=== PATIENT | male | born 1980 | race Caucasian/White ===

== ENCOUNTER 2022-06-07 20:05 | Emergency (ER) | payer SELFPAY ==
[~2022-06-07] VITALS: Ht 165.1 cm; Wt 72.6 kg
[2022-06-07 20:06] VITALS: BP 136/78
[2022-06-07] MEDS ORDERED: HALOPERIDOL IM 5 MG/ML VIAL IM ONE (20:10)
[2022-06-07] MEDS ORDERED: LORazepam 2 MG/ML VIAL IM ONE (20:10)
--- NOTE | 2022-06-07 20:24 | NUR ---
PT TO BED 02. ON ROOM SERVICE SERVER, SEIZURE PRECAUTIONS INITIATED.
--- NOTE | 2022-06-07 20:30 | NUR ---
42 YO M BIBA [facility] WITH S/S OF SEIZURE ACTIVITY. NO SZ ACTIVITY AT THIS TIME. SZ PRECAUTIONS ARE IN PLACE UNABLE TO OBTAIN HX, RX AND ALLERGIES
--- NOTE | 2022-06-07 22:00 | NUR ---
RESTING WITH EYES CLOSED. RESPIRATIONS REGULAR AND UNLABORED
--- NOTE | 2022-06-08 02:00 | NUR ---
RESTING WITH EYES CLOSED. PT IS DIFFICULT TO AWAKEN, RETURNS TO RESTING WITH EYES CLOSED QUICKLY
[2022-06-08 06:50] VITALS: BP 134/62
--- NOTE | 2022-06-08 06:50 | NUR ---
Patient discharged with v/s stable. Written and verbal after care instructions given and explained. Patient verbalized understanding. Wheel Chair Assisted with to car. All questions addressed prior to discharge. Advised to follow up with PMD.
== END 2022-06-08 06:50 | disposition home or self-care (01) ==
LOC: MED 20:05
DX: R56.9 Unspecified convulsions (principal); R45.1 Restlessness and agitation
CPT/HCPCS: 70450; 96372; 99285; J1630; J2060

== ENCOUNTER 2022-06-23 14:38 | Emergency (ER) | payer SELFPAY ==
[~2022-06-23] VITALS: Ht 165.1 cm; Wt 81.6 kg
[2022-06-23 14:55] VITALS: BP 130/96
--- NOTE | 2022-06-23 15:01 | NUR ---
[facility] [address]
[2022-06-23] MEDS ORDERED: THIAMINE 200 MG/2 ML VIAL IM ONE (15:20)
[2022-06-23] MEDS ORDERED: NACL 0.9% 1,000 ML IV ONE (15:20)
[2022-06-23] MEDS ORDERED: FOLIC ACID 5 MG, MULTIVITAMIN-12 10 ML in NACL 0.9% 1,000 ML IV ONE (15:20)
--- NOTE | 2022-06-23 15:20 | NUR ---
PT W/C ASSISTED TO BED 11.
--- NOTE | 2022-06-23 15:26 | NUR ---
PT CHANGED OUT OF SOILED CLOTHES, CHANGED INTO A GOWN
[2022-06-23 15:27] LABS: BASOPHILS # (AUTO) 0.1 K/uL (0.00-0.22); BASOPHILS % (AUTO) 0.5 % (0.0-2.0); EOSINOPHILS # (AUTO) 0.3 K/uL (0-0.4); EOSINOPHILS % (AUTO) 2.5 % (0.0-4.0); HEMATOCRIT 41.1 % (36-52); HEMOGLOBIN 13.4 g/dL (12.0-18.0); LYMPHOCYTES # (AUTO) 2.7 K/uL (2.0-11.5); LYMPHOCYTES % (AUTO) 24.3 % (20.5-51.1); MEAN CORPUSCULAR HEMOGLOBIN 28 pg (27-31); MEAN CORPUSCULAR HGB CONC 33 g/dL (33-37); MEAN CORPUSCULAR VOLUME 84.4 fL (80-94); MONOCYTES # (AUTO) 0.5 K/uL (0.8-1.0); NEUTROPHILS # (AUTO) 7.4 K/uL (1.8-7.7); NEUTROPHILS % (AUTO) 67.7 % (42.2-75.2); PLATELET COUNT (AUTO) 289 K/uL (140-450); RED BLOOD CELL COUNT(AUTO) 4.88 MIL/uL (4.20-6.10); RED CELL DISTRIBUTION WIDTH 15.1 % (11.6-13.7); WHITE BLOOD COUNT (AUTO) 10.9 K/uL (4.8-10.8)
[2022-06-23] MEDS ORDERED: FOLIC ACID 5 MG, MULTIVITAMIN-12 10 ML in NACL 0.9% 1,000 ML IV SCH (15:32)
--- NOTE | 2022-06-23 15:32 | NUR ---
PT TAKEN TO CT VIA [facility]
--- NOTE | 2022-06-23 15:55 | NUR ---
42 Y/O MALE BIBA [facility] C/O ETOH. PT NOTED TO BE SLURRING HIS SPEECH AND SMELLING OF ALCOHOL AND URINE. ALLERGY: UNOBTAINABLE PMH: DM
[2022-06-23 15:58] LABS: APPEARANCE,URINE CLEAR (CLEAR); BILIRUBIN,URINE NEGATIVE (NEGATIVE); BLOOD, URINE NEGATIVE (NEGATIVE); COLOR,URINE YELLOW (YELLOW); LEUKOCYTE ESTERASE ,URINE NEGATIVE (NEGATIVE); NITRITE, URINE NEGATIVE (NEGATIVE); UGLUCOSE 2+ (NEGATIVE)
[2022-06-23 16:02] LABS: ALBUMIN 3.6 g/dL (3.4-5.0); ANION GAP 21.8 (8-16); ASPARTATE AMINOTRANSFERASE 26 U/L (15-37); CARBON DIOXIDE 22.3 mmol/L (21-32); CHLORIDE 98 mmol/L (98-107); CREATININE 0.7 mg/dL (0.6-1.3); GFR ARICAN-AMERICAN 158 mL/min (>90); GLUCOSE 273 mg/dL (74-106); POTASSIUM 4.1 mmol/L (3.5-5.1); SODIUM SERUM 138 mmol/L (136-145); TOTAL BILIRUBIN 0.2 mg/dL (0.0-1.0); UREA NITROGEN, BLOOD 9 mg/dL (7-18)
[2022-06-23 16:14] LABS: BARBITURATE, URINE NEGATIVE ng/ml (NEG <=200); BENZODIAZEPINE, URINE NEGATIVE ng/mL (NEG <=200); CANNABINOID, URINE NEGATIVE ng/mL (NEG <=50); COCAINE, URINE NEGATIVE ng/mL (NEG <=300); OPIATE, URINE NEGATIVE ng/mL (NEG <=2000); PHENCYCLIDINE SCREEN,URINE NEGATIVE ng/mL (NEG <=25)
--- NOTE | 2022-06-23 19:15 | NUR ---
Pt report given to [facility] AND [facility]. Transfer of care at this time.
--- NOTE | 2022-06-23 19:45 | NUR ---
ATTEMPTED TO CALL HOME FROM [facility] WITH NO SUCCESS
--- NOTE | 2022-06-23 19:50 | NUR ---
ATTEMPTED TO CALL HOME FROM [facility] WITH NO SUCCESS
--- NOTE | 2022-06-23 23:00 | NUR ---
ATTEMPTED TO CALL HOME FROM [facility] WITH NO SUCCESS
--- NOTE | 2022-06-24 00:30 | NUR ---
ATTEMPTED TO CALL HOME FROM [facility] WITH NO SUCCESS
--- NOTE | 2022-06-24 10:00 | NUR ---
ATTEMPTED TO CALL [facility] WITHOUT ANY ANSWER. CALLED [facility] TO SPEAK TO PTS COMMUNITY DEVELOPMENT PLANNER, UNABLE TO REACH D/T HOLIDAY HOURS.
--- NOTE | 2022-06-24 10:30 | NUR ---
SPOKE TO COOK ROAST MADE AWARE OF SITUATION, ALSO SPOKE TO SUPERVISOR CLAIMS AND MADE AWARE
--- NOTE | 2022-06-24 12:10 | NUR ---
PT DC TO HALF-WAY VIA [facility]. PT STABLE ON DC. NAD.
[2022-06-24 12:11] VITALS: BP 144/79
--- NOTE | 2022-07-08 | NUR ---
LATE ENTRY* IVF DISCONTINUED AT 1900
== END 2022-06-24 12:10 | disposition home or self-care (01) ==
LOC: MED 14:38
DX: R41.82 Altered mental status, unspecified (principal); F10.129 Alcohol abuse with intoxication, unspecified; Z59.00 Homelessness unspecified; Y90.9 Presence of alcohol in blood, level not specified
CPT/HCPCS: 36415; 70450; 80053; 80305; 81003; 84484; 85025; 93005; 96365; 96372; 99285; A9153; G0482; J3411; J3490; J7030; 96361; 96374

== ENCOUNTER 2024-04-01 21:00 | Emergency (ER) | payer SELFPAY ==
[~2024-04-01] VITALS: Ht 165.1 cm; Wt 68.0 kg
[2024-04-01 21:02] VITALS: BP 124/81; PULSE 127; RESP 22; TEMP 98.2; O2SAT 100
[2024-04-01 21:45] LABS: BASOPHILS # (AUTO) 0.2 K/uL (0.00-0.22); BASOPHILS % (AUTO) 1.2 % (0.0-2.0); EOSINOPHILS # (AUTO) 0.6 K/uL (0-0.4); EOSINOPHILS % (AUTO) 3.8 % (0.0-4.0); HEMATOCRIT 42.8 % (36-52); HEMOGLOBIN 14.1 g/dL (12.0-18.0); LYMPHOCYTES # (AUTO) 4.2 K/uL (2.0-11.5); LYMPHOCYTES % (AUTO) 27.7 % (20.5-51.1); MEAN CORPUSCULAR HEMOGLOBIN 28 pg (27-31); MEAN CORPUSCULAR HGB CONC 33 g/dL (33-37); MEAN CORPUSCULAR VOLUME 85.5 fL (80-94); MONOCYTES # (AUTO) 0.9 K/uL (0.8-1.0); MONOCYTES % (AUTO) 5.8 % (1.7-9.3); NEUTROPHILS # (AUTO) 9.4 K/uL (1.8-7.7); NEUTROPHILS % (AUTO) 61.5 % (42.2-75.2); PLATELET COUNT (AUTO) 353 K/uL (140-450); RED CELL DISTRIBUTION WIDTH 15.6 % (11.6-13.7); WHITE BLOOD COUNT (AUTO) 15.2 K/uL (4.8-10.8)
[2024-04-01] MEDS: KETOROLAC 30 MG/ML VIAL IVP ONE (21:45)
[2024-04-01] MEDS: NACL 0.9% 1,000 ML IV ONE (21:46)
[2024-04-01 22:08] LABS: ANION GAP 15.4 (8-16); CALCIUM 9.2 mg/dL (8.5-10.1); CARBON DIOXIDE 24.1 mmol/L (21-32); CREATININE 0.8 mg/dL (0.6-1.3); POTASSIUM 3.5 mmol/L (3.5-5.1)
[2024-04-01 22:20] LABS: ALBUMIN 3.8 g/dL (3.4-5.0); BILIRUBIN,DIRECT 0.1 mg/dL (0.0-0.3); TOTAL BILIRUBIN 0.3 mg/dL (0.0-1.0); TOTAL PROTEIN, SERUM 8.4 g/dL (6.4-8.2)
[2024-04-02 06:04] VITALS: BP 108/72; PULSE 90; RESP 15; TEMP 98; O2SAT 98
== END 2024-04-02 06:04 | disposition home or self-care (01) ==
LOC: MED 21:00
DX: F10.129 Alcohol abuse with intoxication, unspecified (principal); E11.9 Type 2 diabetes mellitus without complications; Y90.9 Presence of alcohol in blood, level not specified
CPT/HCPCS: 36415; 76705; 80048; 80076; 82948; 83690; 85025; 93005; 96361; 96374; 99285; J1885; J7030; Q0092